=== PATIENT | female | born 1970 | race Two or more races ===

== ENCOUNTER → 2024-04-15 | Outpatient (CLI) | payer BC, SELFPAY ==
[2024-04-15 09:06] LABS: Follicle Stimulating Hormone 4.93 mIU/mL (See Note)
[2024-04-25 06:51] LABS: Estradiol, Ultrasensitive* 118 pg/mL; Testosterone,Total* 373 ng/dL (2-45)
== END | disposition home or self-care (01) ==
LOC: COPL 07:54
PROVIDERS: PCP Family Medicine; Referring Provider Internal Medicine; Visit Provider Internal Medicine
DX: N95.1 Menopausal and female climacteric states (principal); R68.82 Decreased libido; R23.2 Flushing
CPT/HCPCS: 36415; 82670; 83001; 84403

== ENCOUNTER 2024-05-07 20:47 | Emergency (ER) | payer BC, SELFPAY ==
[2024-05-07 20:50] VITALS: BP 109/72; PULSE 81; RESP 22; TEMP 36.4; O2SAT 100
--- NOTE | 2024-05-07 20:51 | EKG_ITS ---
[facility] Test Date: 2024-05-07 Pat Name: RAOUL ORTIZ Department: Room: - Gender: Female [employer]: : 1970 Requested By: ED Temporary Provider Order Number: [id number] Reading MD: ED Temporary Provider Measurements Intervals [place] Rate: 68 P: 74 NE: 148 QRS: 64 QRSD: 89 T: 55 QT: 411 QTc: 438 Interpretive Statements SINUS RHYTHM WITH MARKED SINUS ARRHYTHMIA POSSIBLE RIGHT VENTRICULAR CONDUCTION DELAY [RSR (QR) IN V1/V2] No previous ECG available for comparison /[id number]/[email or web address]/[id number].pdf
[2024-05-07 20:52] VITALS: BMI 25.7
--- NOTE | 2024-05-07 21:03 | XR_ITS ---
Examination: AP chest single view Technique one AP portable semiupright chest single view Exam date and time: May 07, 2024 2111 hrs. Indications: Chest pain shortness of breath today. Findings: Normal heart size Lungs are clear. The osseous structures are intact Impression: No active disease
[2024-05-07 21:10] VITALS: PULSE 77
--- NOTE | 2024-05-07 21:21 | EDNOTE_ITS ---
ED Chest Pain RME/HPI General Chief Complaint: Chest Pain Stated Complaint: CHEST PAIN, SOB Time Seen by Provider: 05/07/24 21:02 Arrival date/time: 05/07/24 20:47 RME / HPI RME / HPI narrative: DR. BENITEZ MAIN ED EVALUATION: 53 year old female presents to the Emergency Department with complaint of chest pain. Pain is described as aching and rated mild to moderate in severity. Associated symptoms include shortness of breath. PMHx: Denies any PMHx, surgeries, daily medications, or known allergies. Social Hx: Chronic alcohol and marijuana use. Related Data Previous Rx's ?Medication ?Instructions ?Recorded promethazine-DM 6.25 mg-15 mg/5 mL 5 ml PO Q8HR #120 mL 07/17/17 oral syrup cephalexin 500 mg capsule 500 mg PO TID #15 caps 05/08/24 Allergies Allergy/AdvReac Type Severity Reaction Status Date / Time NKA Allergy Unknown Uncoded 12/29/02 20:44 No Known Allergies Allergy Uncoded 12/29/02 15:00 Review of Systems Review of Systems Systems Reviewed: All systems reviewed, normal except as documented Narrative Review of Systems: GEN: No fever, no chills, no weight loss EYES: No discharge, no visual changes, no pain HEENT: No ear pain, no congestion, no sore throat PULM: + shortness of breath, no cough, no congestion CV: + chest pain, no dyspnea on exertion, no palpitations GI: No nausea, no vomiting, no diarrhea, no pain, no constipation : No frequency, no urgency and no dysuria MUSC/SKEL: No joint pain, no back pain SKIN: No rash PSYCH: No hallucinations, no depression HEME/LYMPH: No easy bleeding or bruising tendencies NEURO: No weakness, no headache Past Medical History Social History SMOKING STATUS: Never smoker SUBSTANCE USE: marijuana ALCOHOL: Current ED Exam Narrative Physical exam: GENERAL APPEARANCE: alert and oriented x 4, well-developed, well-nourished, no acute distress VITALS: All vitals were reviewed and the pulse ox is 100% on room air, which is normal according to my interpretation. HEENT: Normocephalic, atraumatic; pupils equal, round, reactive to light; EOMI; mucous membranes pink, moist; oropharynx clear NECK: Supple LUNGS: CTABL; no wheezes, no rales, no rhonchi HEART: Regular rate, regular rhythm; normal S1, S2; no murmurs ABDOMEN: non distended; normal BS; soft, no tenderness, no guarding, no rebound; no masses, no organomegaly, no hernia BACK: no CVA tenderness EXTREMITIES: atraumatic; no edema NEUROLOGIC: awake; alert and oriented x4; cranial nerves II-XII grossly intact; no focal sensory or motor deficits PSYCHIATRIC: appropriate mood and affect SKIN: warm, dry, normal color; no rashes Course Quality Measures none Orders Category Date Time Status CT Screening NOW Care 05/07/24 21:27 Completed Infant Room Teacher NOW Care 05/07/24 21:03 Completed EKG (ED ONLY) *Do not use* NOW Care 05/07/24 20:[address] angio chest Stat Exams 05/07/24 21:27 Completed EKG (ED Only) Stat Exams 05/07/24 20:51 Draft XR chest 1V portable Stat Exams 05/07/24 21:03 Completed Alcohol, Blood Medical Stat Lab 05/07/24 21:09 Completed B-Type Natriuretic Peptide Stat Lab 05/07/24 22:30 Completed CBC Stat Lab 05/07/24 22:30 Completed Comprehensive Metabolic Panel Stat Lab 05/07/24 21:09 Completed Drug Screen,Urine Stat Lab 05/07/24 22:00 Completed Lipase Stat Lab 05/07/24 21:09 Completed Magnesium Stat Lab 05/07/24 21:09 Completed Partial Thromboplastin Time Stat Lab 05/07/24 21:09 Completed Prothrombin Time with INR Stat Lab 05/07/24 21:09 Completed Troponin I Stat Lab 05/07/24 21:09 Completed UA, C/S IF [Urinalysis, C/S if Indicated] Stat Lab 05/07/24 22:00 Completed Urine Culture Stat Lab 05/07/24 22:00 Received KCL 10% Liq UDC 15 ML Med 05/08/24 00:47 Discontinued 40 meq PO X1 ONE Morphine Inj Med 05/07/24 21:03 Discontinued 5 mg IVP X1 ONE Ondansetron Inj [Zofran Inj] Med 05/07/24 21:03 Discontinued 4 mg IV X1 ONE cephALEXin [Keflex] Med 05/08/24 00:48 Discontinued 500 mg PO X1 ONE Reevaluation(s) Reevaluation #1: Patient remains clinically stable throughout the emergency department visit. Re- assessment at the time of disposition demonstrates that the patient is in no acute distress. We reviewed all the results, analysis, and treatment plans. Patient is amenable to discharge. Strict return precautions were outlined. Patient was discharged in stable condition. Time: 00:45 Vital Signs Vital signs: Vital Signs Temperature 97.5 F 05/07/24 20:50 Pulse Rate 81 05/07/24 20:50 Respiratory Rate 22 H 05/07/24 20:50 Blood Pressure 109/72 05/07/24 20:50 Pulse Oximetry (%) 100 05/07/24 20:50 Oxygen Delivery Method Room Air 05/07/24 20:50 Chest Pain MDM Narrative MDM Narrative:: I, Parris Carroll, am scribing for and in the presence of Dr. Benitez. Patient data External records reviewed:: [facility] previous records (Reviewed last ED visit dated 01/24/24, discharged with the following: Alcohol use.) Clinical information provided by:: patient Social determinants that could affect healthcare access:: other (specify) (Chronic alcohol and marijuana use.) Patient has the following chronic illnesses:: Denies any PMHx, surgeries, daily medications, or known allergies. How is presenting disease/condition affected by chronic disease/condition?: no chronic disease Evaluation data The following diagnostics were reviewed and interpreted by me:: lab results, radiology exam(s) and EKG tracing(s) (sinus rhythm, rate 68, QTc 438) Lab and/or radiology exams considered but not ordered:: none Interpretation Summary: Procedure(s): XR chest 1V portable Accession Number(s): [id number] cc: Castro Neff MD; Johnna Benitez MD~ Examination: AP chest single view Technique one AP portable semiupright chest single view Exam date and time: May 07, 2024 2111 hrs. Indications: Chest pain shortness of breath today. Findings: Normal heart size Lungs are clear. The osseous structures are intact Impression: No active disease Dictated By: Castro Neff MD Procedure(s): CT angio chest Accession Number(s): [id number] cc: Castro Neff MD; Amy Correia MD; Johnna Benitez MD~ Examination: CTA chest with intravenous contrast 2-D reconstructions 3-D reconstructions, vascular Date and time of exam: May 07, 2024 1132 hrs. Indications: Onset shortness of breath chest pain today CTDI: vol (mGy) 5.88 DLP: (mGycm) 199 Technique: Multiple axial sections of the thorax have been obtained. 3 mm slice thickness, from below the hemidiaphragms to above the apices of the lungs. Mediastinal and lung density settings have been obtained. 2-D sagittal and coronal reconstructions. 3-D angiographic renderings, 3-D volume renderings, 3D post processing, vascular maximum intensity projections obtained. Contrast administered is 100 cc Isovue-370. Low dose protocols were performed. One or more of the following dose reduction techniques were used; automated exposure control, adjustment of the mA and/or KV according to patient size, use of iterative reconstruction technique. Findings: No thoracic aortic aneurysm dilatation or dissection Pulmonary artery segments are not enlarged No pulmonary artery emboli No paratracheal tracheobronchial or bronchopulmonary adenopathy No pneumonia, pulmonary edema or pleural disease No visualized liver or splenic lesion No pancreatic mass Visualized abdominal aorta appears intact Mild thoracic spondylosis Impression: Negative for pulmonary artery emboli No pneumonia, pulmonary edema or pleural disease Dictated By: Castro Neff MD Medications / Prescriptions Medications or Prescriptions considered but not ordered:: none Medication administrations:: Medication Administration History Discontinued Medications Cephalexin HCl (Cephalexin 250 Mg Capsule) 500 mg PO X1 ONE Stop: 05/08/24 00:49 Last Admin: 05/08/24 01:05 Dose: 500 mg Documented By: JAE Morphine Sulfate (Morphine Sulf Inj 10 Mg/Ml Vial) 5 mg IVP X1 ONE Stop: 05/07/24 21:04 Last Admin: 05/07/24 23:49 Dose: Not Given Documented By: JAE Non-Admin Reason: Patient Refused Ondansetron HCl (Ondansetron Inj 2 Mg/Ml Inj 2 Ml) 4 mg IV X1 ONE Stop: 05/07/24 21:04 Last Admin: 05/07/24 23:49 Dose: Not Given Documented By: CB Non-Admin Reason: Patient Refused Potassium Chloride (Potassium Chloride 10% 20 Meq/15 Ml Udc) 40 meq PO X1 ONE Stop: 05/08/24 00:48 Last Admin: 05/08/24 01:04 Dose: 40 meq Documented By: JAE see above Consultations Consultation(s) initiated? (list below): No Diagnosis Chest Pain Differential Diagnosis: pneumothorax, atypical chest pain, costochondritis, chest pain and other (PE) Most likely diagnosis given after review of the tests above:: UTI (urinary tract infection), Atypical chest pain, Acute upper back pain Admission Indicated Admission indicated?: not indicated Admission Request Was there a request for admission?: No Disposition Plan Disposition Plan: Discharge Discharge Attestation Discharge Attestation: The patient and all family members were given an opportunity to ask questions and understood the discharge instructions. Discharge instructions specifically effects, indications for sooner follow up or return to the emergency department, and the expected course of current diagnosis. Patient condition: Stable Discharge Plan Plan Patient Disposition: HOME (Self Care) Prescriptions/Referrals Prescriptions/Med Rec: New cephalexin 500 mg capsule 500 mg PO TID Qty: 15 0RF No Action promethazine-DM 6.25-15 mg/5 mL syrup 5 ml PO Q8HR Qty: 120 0RF Referrals: Amy Ashraf MD [Primary Care Provider] - In 1 week Problem List Clinical Impression: UTI (urinary tract infection), Atypical chest pain, Acute upper back pain Patient/Caregiver Discharge Instructions Education Materials: ED Chest Pain, Noncardiac, ED CYSTITIS Female Adult Print Language: Estonian Stand Alone Forms: Jennifer Award Info., Patient Portal Info Letter
--- NOTE | 2024-05-07 21:27 | XR_ITS ---
Examination: CTA chest with intravenous contrast 2-D reconstructions 3-D reconstructions, vascular Date and time of exam: May 07, 2024 1132 hrs. Indications: Onset shortness of breath chest pain today CTDI: vol (mGy) 5.88 DLP: (mGycm) 199 Technique: Multiple axial sections of the thorax have been obtained. 3 mm slice thickness, from below the hemidiaphragms to above the apices of the lungs. Mediastinal and lung density settings have been obtained. 2-D sagittal and coronal reconstructions. 3-D angiographic renderings, 3-D volume renderings, 3D post processing, vascular maximum intensity projections obtained. Contrast administered is 100 cc Isovue-370. Low dose protocols were performed. One or more of the following dose reduction techniques were used; automated exposure control, adjustment of the mA and/or KV according to patient size, use of iterative reconstruction technique. Findings: No thoracic aortic aneurysm dilatation or dissection Pulmonary artery segments are not enlarged No pulmonary artery emboli No paratracheal tracheobronchial or bronchopulmonary adenopathy No pneumonia, pulmonary edema or pleural disease No visualized liver or splenic lesion No pancreatic mass Visualized abdominal aorta appears intact Mild thoracic spondylosis Impression: Negative for pulmonary artery emboli No pneumonia, pulmonary edema or pleural disease
[2024-05-07 22:05] LABS: Collection Type, Urine Clean Catch
[2024-05-07 22:09] LABS: Alanine Aminotransferase 31 U/L (10-49); Albumin, Serum 5.1 gm/dL (3.5-5.0); Albumin/Globulin Ratio 1.6 (1.2-2.2); Alcohol, Blood Medical < 3.0 mg/dL (0-10.0); Alkaline Phosphatase 88 U/L (46-116); Anion Gap 15 (7-16); Aspartate Amino Transferase 53 U/L (0-34); BUN/Creatinine Ratio 11 Ratio (12-20); Bilirubin,Total 0.6 mg/dL (0.3-1.2); Blood Urea Nitrogen 11 mg/dL (9-23); Calcium 10.4 mg/dL (8.3-10.6); Calcium (Corrected) 10.4 mg/dL (8.5-10.1); Carbon Dioxide 18.8 mMol/L (20.0-31.0); Chloride 102 mMol/L (98-107); Estimated Creatinine Clearance 69.3 mL/min (>60); Globulin 3.2 gm/dL (2.3-3.5); Glucose 111 mg/dL (74-106); Lipase 70 U/L (12-53); Magnesium 2.2 mg/dL (1.6-2.6); Osmolality,Calculated 272 (275-295); Potassium 3.2 mMol/L (3.4-5.1); Sodium 136 mMol/L (136-145); Total Protein 8.3 gm/dL (5.7-8.2); Troponin I < 0.002 ng/mL (0.0-0.045); eGFR > 60 See Note
[2024-05-07 22:10] LABS: Prothrombin Time 10.7 Seconds (9.0-12.2)
[2024-05-07 22:23] LABS: Amphetamine/Methamp Scrn,U Negative (Negative); Barbiturate Screen,Urine Negative (Negative); Benzodiazepines Screen,Urine Negative (Negative); Benzoylecgonine Screen, Ur Negative (Negative); Fentanyl Screen,Urine Negative (Negative); Opiate Screen,Urine Negative (Negative); THC Screen,Urine Negative (Negative)
[2024-05-07 22:31] LABS: Bacteria,Urine 1+; Bilirubin,Urine Negative (Negative); Blood,Urine 3+ (Negative); Clarity,Urine Clear (Clear/Hazy); Color,Urine Yellow (Lt Yel-Yel); Glucose, Urine Negative (Negative); Hyaline Casts,Urine < 1 /hpf (0-1); Ketones,Urine 4+ (Negative); Leukocyte Esterase,Urine Positive (Negative); Nitrite,Urine Positive (Negative); PH,Urine 6.5 (5.0-7.0); Protein,Urine 1+ (Neg - Trace); RBC,Urine 129 /hpf (0-3); Specific Gravity,Urine 1.024 (1.001-1.035); Squamous Epithelial Cell,Urine 2 /hpf (0-5); Urobilinogen,Urine Negative mg/dL (0.0-1.0); WBC,Urine 8 /hpf (0-5)
[2024-05-07 22:32] LABS: Culture Indicated,Urine Yes
[2024-05-07 22:50] LABS: Basophils # (Auto) 0.1 Thou/mm3 (0.0-0.2); Basophils % (Auto) 0 % (0-2.5); Eosinophils # (Auto) 0.1 Thou/mm3 (0.0-0.5); Eosinophils % (Auto) 1 % (0-10); Hematocrit 37.6 % (36.0-46.0); Hemoglobin 12.4 g/dL (12.0-16.0); Immature Granulocytes % (Auto) 0 % (0-0); Immature Granulocytes Auto 0.04 Thou/mm3 (0.00-0.00); Lymphocytes # (Auto) 2.3 Thou/mm3 (1.0-4.8); Lymphocytes % (Auto) 17 % (10-50); Mean Corpuscular Hemoglobin 26.8 pg (25.0-35.0); Mean Corpuscular Volume 81 fL (80-100); Monocytes # (Auto) 0.9 Thou/mm3 (0.0-0.8); Monocytes % (Auto) 7 % (0-12); Neutrophils % (Auto) 75 % (37-80); Nucleated Red Blood Cell % 0 /100 WBC (0); Platelet Count 342 Thou/mm3 (140-440); RDW Standard Deviation 40.3 fL (36.4-46.3); Red Blood Count 4.62 Miln/mm3 (4.00-5.20); White Blood Count 13.4 Thou/mm3 (3.6-11.0)
[2024-05-07 23:03] LABS: B-Type Natriuretic Peptide < 20 pg/mL (0-100)
[2024-05-07 23:50] VITALS: BP 124/76; PULSE 74; RESP 15; O2SAT 99
[2024-05-08] MEDS: POTASSIUM CHLORIDE 10% 20 MEQ/15 ML UDC 40 MEQ PO (01:04)
[2024-05-08] MEDS: cephALEXin 250 MG CAPSULE 500 MG PO (01:05)
[2024-05-08 01:09] VITALS: BP 106/74; PULSE 78; RESP 18; TEMP 36.6; O2SAT 98
== END 2024-05-08 01:12 | disposition home or self-care (01) ==
PROVIDERS: Emergency Provider Emergency Medicine; PCP Family Medicine
DX: N39.0 Urinary tract infection, site not specified (principal); R07.89 Other chest pain; M54.6 Pain in thoracic spine; R06.02 Shortness of breath
CPT/HCPCS: 36415; 71045; 71275; 80053; 80307; 80320; 81001; 83690; 83735; 83880; 84484; 85025; 85610; 85730; 87077; 87086; 87186; 93005; 99285; A4649; Q9967; A9270; G0480

== ENCOUNTER → 2024-07-26 | Outpatient (CLI) | payer BC, SELFPAY ==
[2024-08-01 06:56] LABS: Estradiol, Ultrasensitive* 66 pg/mL; Testosterone,Total* 30 ng/dL (2-45)
== END | disposition home or self-care (01) ==
LOC: COPL 08:42
PROVIDERS: PCP Family Medicine; Referring Provider Obstetrics & Gynecology; Visit Provider Obstetrics & Gynecology
DX: N95.1 Menopausal and female climacteric states (principal); R68.82 Decreased libido; R23.2 Flushing
CPT/HCPCS: 36415; 82670; 83001; 84403

== ENCOUNTER → 2025-01-05 | Outpatient (CLI) | payer BC, SELFPAY ==
[2025-01-05 12:19] LABS: Follicle Stimulating Hormone 40.41 mIU/mL (See Note)
[2025-01-20 06:56] LABS: Estradiol, Ultrasensitive* 35 pg/mL; Testosterone,Total* 16 ng/dL (2-45)
== END | disposition home or self-care (01) ==
LOC: COPL 10:24
PROVIDERS: PCP Family Medicine; Referring Provider Internal Medicine; Visit Provider Internal Medicine
DX: N95.1 Menopausal and female climacteric states (principal)
CPT/HCPCS: 36415; 82670; 83001; 84403

== ENCOUNTER → 2025-03-09 | Outpatient (CLI) | payer BC, SELFPAY ==
[2025-03-09 13:43] LABS: Follicle Stimulating Hormone 16.01 mIU/mL (See Note)
[2025-03-17 06:44] LABS: Estradiol, Ultrasensitive* 86 pg/mL; Testosterone,Total* 278 ng/dL (2-45)
== END | disposition home or self-care (01) ==
LOC: COPL 12:28
PROVIDERS: PCP Family Medicine; Referring Provider Internal Medicine; Visit Provider Internal Medicine
DX: N95.1 Menopausal and female climacteric states (principal)
CPT/HCPCS: 36415; 82670; 83001; 84403